=== PATIENT | male | born 1950 | race Caucasian/White ===

== ENCOUNTER → 2017-05-24 | Outpatient (CLI) | payer MEDICARE, OTHER ==
[~2017-05-24] MED LIST: ALBU90AE INH; BEN10 PO; DOXA8TAB11 PO; DOXA8TAB62 PO; FINA5TAB67 PO; HCTZ25 PO; METF-420 PO; METO200T32 PO; METO200T33 PO; MIRA50TA PO; NIA500 PO; OLME1TAB73 PO; OXYB10TA16 PO; SAW/1TAB2 PO; SIMV-44 PO; SIMV-54 PO; TAMS0.4C70 PO
== END ==
LOC: LAB 17:13
PROVIDERS: ATTEND Urology
DX: N40.1 Benign prostatic hyperplasia with lower urinary tract symptoms (principal)
CPT/HCPCS: 36415; 84153

== ENCOUNTER → 2018-06-14 | Outpatient (CLI) | payer MEDICARE, OTHER ==
[~2018-06-14] MED LIST changes: +FLUC100T35 PO; -METF-420 PO; +METF-452 PO; +NYST15CR32 TP
[2018-06-14 15:13] LABS: PLATELET COUNT, AUTOMATED 127 K/uL (150-450)
[2018-06-14 16:09] LABS: LDL CHOLESTEROL 55 mg/dl
== END ==
LOC: LAB 14:35
PROVIDERS: ATTEND Internal Medicine
DX: E78.5 Hyperlipidemia, unspecified (principal); N40.0 Benign prostatic hyperplasia without lower urinary tract symptoms; I10 Essential (primary) hypertension; E11.9 Type 2 diabetes mellitus without complications; R60.9 Edema, unspecified; B49 Unspecified mycosis
CPT/HCPCS: 36415; 81001; 83036; 84443; 85025; G0103; 82040; 82247; 82310; 82374; 82435; 82465; 82565; 82947; 83718; 84075; 84132; 84153; 84155; 84295; 84450; 84460; 84478; 84520